=== PATIENT | female | born 1960 | race Two or more races ===

== ENCOUNTER 2024-10-23 11:50 | Day surgery (SDC) | payer MEDICAID, SELFPAY ==
[2024-10-22 13:37] VITALS: BMI 31.1
[2024-10-23] VITALS (12 sets, daily range): BP systolic 113–160; BP diastolic 69–90; PULSE 55–67; RESP 8–17; TEMP 36.2–36.9; O2SAT 95–100; BMI 32.3
[2024-10-23] MEDS: RINGERS LACTATED 1000 ML 1,000 ML 100 ML IV (14:04)
[2024-10-23] MEDS: fentaNYL CIT INJ 50 mCg/ML AMP 2ML (ASD USE ONLY) IVP (14:10)
[2024-10-23] MEDS: MIDAZOLAM INJ 1 MG/ML VIAL 2 ML (ASD USE ONLY) 2 MG IVP (14:10)
== END 2024-10-23 15:25 | disposition home or self-care (01) ==
PROVIDERS: PCP Family Medicine; Referring Provider Surgery; Visit Provider Surgery
PROC: 0DBE8ZX Excision of Large Intestine, Via Natural or Artificial Opening Endoscopic, Diagnostic (ICD-10-PCS; CPT 45380; principal; 2024-10-23 13:45)
DX: Z12.11 Encounter for screening for malignant neoplasm of colon (principal); K57.30 Diverticulosis of large intestine without perforation or abscess without bleeding
CPT/HCPCS: 45380; J2250; J3010; J7120